=== PATIENT | male | born 1950 | race American Indian/Alaskan Native ===

== ENCOUNTER 2019-02-15 19:51 | Emergency (ER) | payer OTHER ==
[~2019-02-15] VITALS: Ht 152.4 cm; Wt 63.5 kg
[~2019-02-15 19:51] MED LIST: AVAPRO75 MG; FLONASE16 GM; KLONOPIN0.5 MG/TAB; LEXAPRO20 MG; PEPCID20 MG; SEROQUEL25 MG
[2019-02-15] MEDS ORDERED: METOPROLOL SUCC25 MG (20:17)
[2019-02-15] MEDS ORDERED: CARDURA1 MG (20:18)
[2019-02-15] MEDS ORDERED: SEROQUEL25 MG (20:19)
[2019-02-15] MEDS ORDERED: HYDROCHLOROTH12.5 M1 (20:19)
== END 2019-02-16 00:09 | disposition home or self-care (01) ==
LOC: ER 19:51
DX: G35 Multiple sclerosis (principal)

== ENCOUNTER 2020-11-10 14:38 | Outpatient (CLI) | payer OTHER ==
[~2020-11-10 14:38] MED LIST changes: +CARDURA1 MG; +HYDROCHLOROTH12.5 M1; +METOPROLOL SUCC25 MG
== END 2020-11-10 15:05 | disposition home or self-care (01) ==
LOC: NUCLEAR 14:38
PROVIDERS: ATTEND Internal Medicine Endocrinology, Diabetes & Metabolism
DX: M81.0 Age-related osteoporosis without current pathological fracture (principal)

== ENCOUNTER 2023-08-15 07:15 | Outpatient (CLI) | payer OTHER | END 2023-08-15 07:23 | disposition home or self-care (01) | LOC: TOM 07:15 | PROVIDERS: ATTEND Internal Medicine Gastroenterology | DX: K56.600 Partial intestinal obstruction, unspecified as to cause (principal); Z86.010 Personal history of colon polyps ==

== ENCOUNTER 2025-06-04 19:23 | Emergency (ER) | payer OTHER ==
[~2025-06-04] VITALS: Ht 177.8 cm; Wt 79.4 kg
[2025-06-04] MEDS ORDERED: ESCITALOPRA5 MG/5 ML (20:42)
[2025-06-04] MEDS ORDERED: LINZESS290 MCG (20:42)
[2025-06-04] MEDS ORDERED: KLOR-CON8 MEQ (20:43)
[2025-06-04] MEDS ORDERED: ONDANSETRON HCL 2 MG/ML VIAL IV ONE (22:00)
[2025-06-04] MEDS ORDERED: FAMOTIDINE/PF 20 MG/2 ML VIAL IV ONE (22:00)
[2025-06-05 02:07] LABS: BASO % 0.7 % (0.1-1.2); EOS # 0.07 (0.04-0.54); EOS % 0.9 % (0.7-7.0); LYMPH # 1.86 (1.18-3.74); LYMPH % 24.5 % (19.3-53.1); MEAN PLATELET VOLUME 9.60 fl (9.4-12.4); MONO # 0.57 (0.24-0.82); MONO % 7.5 % (4.7-12.5); NEUT # 5.00 (1.56-6.13); NEUT % 66.0 % (34.0-71.1); RED CELL DISTRIBUTION WIDTH 12.9 % (11.6-14.4)
[2025-06-05 02:08] LABS: URINE APPEARANCE Clear; URINE BILIRRUBIN Negative (NEGATIVE); URINE BLOOD Negative; URINE COLOR Yellow; URINE GLUCOSE Negative (NEGATIVE); URINE KETONE Trace (NEGATIVE); URINE LEUKOCYTE Negative; URINE NITRATE Negative; URINE PROTEIN Negative (NEGATIVE); URINE UROBILINOGEN 0.2 E.U./dl
[2025-06-05 02:12] LABS: URINE BACTERIA 8.0 uL (0.0-1933); URINE RBC 3.1 uL (0.0-20.8)
[2025-06-05 02:16] LABS: INR 0.99; TYPE CELLS SQUAMOUS; URINE CAST 0.00 uL (0.0-1.40); URINE EPITHELIAL CELLS 1.3 uL (0.0-38.8); URINE WBC 0.7 uL (0.0-23.2)
[2025-06-05 02:22] LABS: ALT/SGPT 29.0 U/L (12-78); AST/SGOT 16.0 U/L (15-37); BILIRUBIN TOTAL 0.43 mg/dL (0.3-1.2); BUN CREA RATIO 20.0 (7.0-25.0); CREATININE SERUM 0.51 mg/dL (0.70-1.30); GFR 158.87; GLOBULINA 3.7 G/DL (2.4-3.5); GLUCOSE FASTING 113.0 mg/dL (65-100); OSMOLALITY SERUM 276.0 MOSM/KG (275-295)
[2025-06-05] MEDS ORDERED: MINERAL OIL 30 ML BLIST.PACK PO STA (03:38)
== END 2025-06-05 10:23 | disposition home or self-care (01) ==
LOC: ER 19:24
PROVIDERS: General Practice
DX: K59.09 Other constipation (principal); N40.0 Benign prostatic hyperplasia without lower urinary tract symptoms; I10 Essential (primary) hypertension
CPT/HCPCS: 74177; 96365; 99283; J2405; J3490; Q9965